=== PATIENT | male | born 1990 | race Caucasian/White ===

== ENCOUNTER 2018-10-17 00:42 | Emergency (ER) | payer SELFPAY ==
[~2018-10-17] VITALS: Ht 193 cm; Wt 113.4 kg
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
[2018-10-17] MEDS ORDERED: HYDROCODONE/APAP 5/325MG 1 EACH TABLET ONE (00:59)
[2018-10-17] MEDS ORDERED: HYDROCODONE/APAP 5/325MG 1 EACH TABLET PO ONE (01:00)
--- NOTE | 2018-10-17 01:03 | NUR ---
XRAY IN PROGRESS AT THE BEDSIDE.
[2018-10-17 01:30] VITALS: BP 137/88
== END 2018-10-17 01:31 | disposition home or self-care (01) ==
LOC: ER 00:44
DX: S83.8X2A Sprain of other specified parts of left knee, initial encounter (principal); S83.8X1A Sprain of other specified parts of right knee, initial encounter; M25.512 Pain in left shoulder; V49.59XA Passenger injured in collision with other motor vehicles in traffic accident, initial encounter; Y93.89 Activity, other specified; Y92.413 State road as the place of occurrence of the external cause; Y99.8 Other external cause status
CPT/HCPCS: 73564 ×2; 99283; A4606